=== PATIENT | male | born 1960 | race Caucasian/White ===

== ENCOUNTER 2018-02-07 08:21 | Day surgery (SDC) | payer BC ==
[2018-02-06 14:07] VITALS: BMI 29.3
[2018-02-07] MEDS ORDERED: Oxymetazoline HCl 0.05% ( 15 ML ) ONE ×2 (10:22→11:39)
[2018-02-07 11:32] LABS: Anion Gap 13 mmol/L (10-20); BUN (Urea Nitrogen) 19 mg/dL (8.4-25.7); Calc. Creatinine Clearance 140 mL/min (70-130); Calcium 9.4 mg/dL (7.8-10.44); Carbon Dioxide 31 mmol/L (22-29); Chloride 101 mmol/L (98-107); Estimated GFR-MDRD 89; Glucose 106 mg/dL (70-105); Potassium 3.9 mmol/L (3.5-5.1); Sodium 141 mmol/L (136-145)
[2018-02-07] MEDS ORDERED: Midazolam HCl 2 mg/2 ml Vial ONE (11:38)
[2018-02-07] MEDS ORDERED: Fentanyl 100 MCG/2 ML VIAL ONE ×2 (11:38→13:48)
[2018-02-07] MEDS ORDERED: Lidocaine 1% w/Epinephrine 1:100K 30 ML VIAL ONE (11:39)
[2018-02-07] MEDS ORDERED: Bacitracin Zinc Ointment 30 gm TUBE ONE (11:39)
--- NOTE | 2018-02-07 14:13 | OP ---
DATE OF PROCEDURE: 02/07/2018 PREOPERATIVE DIAGNOSES: 1. Nasal septal deviation. 2. Bilateral inferior turbinate hypertrophy. POSTOPERATIVE DIAGNOSES: 1. Nasal septal deviation. 2. Bilateral inferior turbinate hypertrophy. PROCEDURES: 1. Nasal septoplasty. 2. Bilateral inferior turbinate submucosal resection. SURGEON: Zach Thapa M.D. ESTIMATED BLOOD LOSS: 20 mL COMPLICATIONS: None. ANESTHESIA: GETA. PROCEDURE IN DETAIL: Patient was taken to the operating room and placed supine on the table. Genera l endotracheal anesthesia was obtained by the Anesthesia staff. Tube was secured in the left lower l ip. Patient was then placed in the beach chair position, and Afrin pledgets were placed in the nasal cavity. Injections of 1% lidocaine with 1:100,000 epinephrine were made into the nasal septum as we ll as the inferior turbinates. Patient was then prepped and draped in standard surgical fashion for nasal surgery. Following this, the Afrin pledgets were removed. A Junior incision was made on the left nasal septum. Submucoperichondrial dissection was performed. The deviated portions of the sept um included portions of the cartilage and the bony septum. These isolated areas were removed using t hree cutting rongeurs. There was noted to be a large dorsal and caudal strut, left intact for suppor t of the nose. The mucoperichondrial flaps were then reapproximated using a 4-0 gut stitch. Any str aight pieces of cartilage were crushed prior to this and placed between the mucoperichondrial flaps. Following this, the inferior turbinates were then punctured with a submucosal coblation wand, and rodas bmucosal coblations were performed of multiple areas of the inferior portion of the anterior inferior turbinate. Please note, the microdebrider was used to submucosally resect the anterior and inferior portions of the inferior turbinates bilaterally. The patient tolerated the procedure well.
[2018-02-07] MEDS ORDERED: Hydrocodone-Acetamin 15 ML UDCUP ONE (15:08)
--- NOTE | 2018-02-08 07:55 | EKG ---
Test Reason : PREOP Blood Pressure : / mmHG Vent. Rate : 061 BPM Atrial Rate : 061 BPM P-R Int : 196 ms QRS Dur : 106 ms QT Int : 418 ms P-R-T Axes : 061 092 016 degrees QTc Int : 420 ms Normal sinus rhythm Rightward axis Poor anterior R wave progression No previous ECGs available Confirmed by DR. Timothy FERRELL ([id number]) on 02/08/2018 7:54:56 AM Referred By: NINA Confirmed By:DR. Timothy FERRELL
== END 2018-02-07 16:15 | disposition home or self-care (01) ==
LOC: SDC 08:21
PROVIDERS: ATTEND Otolaryngology Plastic Surgery within the Head & Neck
PROC: 09BM0ZZ Excision of Nasal Septum, Open Approach (ICD-10-PCS; principal; 2018-02-07)
DX: J34.2 Deviated nasal septum (principal); J34.3 Hypertrophy of nasal turbinates; K13.79 Other lesions of oral mucosa; I10 Essential (primary) hypertension; Z79.899 Other long term (current) drug therapy
CPT/HCPCS: 80048; 93005; 93010; 96374; J2001; J2250; J3010

== ENCOUNTER 2019-10-18 19:30 | Emergency (ER) | payer BC | END 2019-10-18 20:34 | disposition home or self-care (01) | LOC: ERS 19:30 | DX: H53.8 Other visual disturbances (principal); I10 Essential (primary) hypertension; Z79.899 Other long term (current) drug therapy | CPT/HCPCS: 93005 ==